=== PATIENT | female | born 1995 | race Caucasian/White ===

== ENCOUNTER → 2019-12-22 | Outpatient (CLI) | payer OTHER ==
[2019-12-22 15:17] LABS: HEMOGLOBIN 13.9 g/dl (12.0-15.5)
[2019-12-22 15:56] LABS: FOLLICLE STIMULATING HORMONE 4.1 mIU/mL; FREE T4 1.06 NG/DL (0.76-1.46); LUTEINIZING HORMONE 7.8 mIU/mL; THYROID STIMULATING HORMONE 1.46 uIU/ML (0.358-3.740)
== END ==
LOC: M PLALAB 13:44
PROVIDERS: ATTEND Nurse Practitioner Women's Health
DX: N92.6 Irregular menstruation, unspecified (principal)

== ENCOUNTER → 2019-12-29 | Outpatient (CLI) | payer OTHER ==
--- NOTE | 2020-01-07 08:46 | REP ---
PELVIC SONOGRAPHY HISTORY: Abnormal menstrual bleeding. FINDINGS: Transabdominal and transvaginal scanning are performed. Uterine dimensions are mildly prominent measuring 9.5 x 4.6 x 6.0 cm. Endometrial echo is 1.3 cm thick. No focal uterine mass is seen. There is a trace of physiologic fluid in the cul-de-sac. Normal ovaries are seen. Right ovarian dimensions are 3.6 x 2.2 x 1.7 cm. Left ovary measures 4.4 x 1.9 x 2.1 cm. IMPRESSION: Borderline uterine enlargement. Otherwise, unremarkable pelvic sonography. MTDD
== END ==
LOC: M WHC 13:23
PROVIDERS: ATTEND Nurse Practitioner Women's Health
DX: N92.6 Irregular menstruation, unspecified (principal)

== ENCOUNTER → 2020-03-02 | Outpatient (REF) | payer OTHER | LOC: M SFHCWAGY 17:14 | PROVIDERS: ATTEND Advanced Practice Midwife | DX: Z12.4 Encounter for screening for malignant neoplasm of cervix (principal); Z01.419 Encounter for gynecological examination (general) (routine) without abnormal findings ==

== ENCOUNTER → 2020-04-01 | Outpatient (CLI) | payer SELFPAY | LOC: M LABSMTC 13:15 | PROVIDERS: ATTEND Pediatrics | DX: Z20.828 Contact with and (suspected) exposure to other viral communicable diseases (principal) ==

== ENCOUNTER → 2020-04-12 | Outpatient (CLI) | payer OTHER ==
[2020-04-12 17:29] LABS: HEMATOCRIT 37.9 % (36.0-47.0); MEAN CORPUSCULAR HGB CONC 34.3 g/dl (32.0-36.5); MEAN CORPUSCULAR VOLUME 93.3 fl (80.0-96.0); PLATELET COUNT, AUTOMATED 301 10^3/uL (150-450); RED BLOOD COUNT 4.06 10^6/uL (4.00-5.40); WHITE BLOOD COUNT 5.3 10^3/uL (4.0-10.0)
[2020-04-12 18:46] LABS: HEPATITIS C VIRUS ABY INDEX < 0.0 INDEX (<0.8); HIV 1&2 SCREEN CENTAUR NEGATIVE (NEGATIVE)
[2020-04-12 21:39] LABS: CHLAMYDIA DNA AMPLIFICATION NEGATIVE (NEGATIVE); GC DNA AMPLIFICATION NEGATIVE (NEGATIVE)
== END ==
LOC: M PLALAB 15:06
PROVIDERS: ATTEND Advanced Practice Midwife
DX: Z34.91 Encounter for supervision of normal pregnancy, unspecified, first trimester (principal)
CPT/HCPCS: 36415; 82652; 84439; 84443; 85027; 86762; 86780; 86803; 86850; 86900; 86901; 87086; 87340; 87389; 87491; 87591; G0463

== ENCOUNTER → 2020-05-19 | Outpatient (CLI) | payer OTHER ==
--- NOTE | 2020-05-20 04:57 | REP ---
INDICATION: ANATOMY COMPARISON: None. TECHNIQUE: Transabdominal obstetrical ultrasound with color Doppler evaluation. FINDINGS: Examination demonstrates a single live intrauterine in breech presentation. motion is identified by technologist. Placenta is noted posterior and grade 1 without evidence for placenta previa or abruption. Amniotic fluid volume is normal. Cervix measures 3.3 cm in length and appears closed.. Gestational age by current measurements 19 weeks 4 days with DEBI 10/09/2020. FHR equals 152 beats per minute. BPD: 4.3 cm at 19 weeks 1 day HC: 16.4 cm at 19 weeks 1 day AC: 13.6 cm at 19 weeks 0 days FL: 3.2 cm at 20 weeks 0 days HL: 3.2 cm at 20 weeks 6 days HC/AC: 1.21 Estimated weight 292 grams (34thpercentile). Anatomical assessment demonstrates normal structures including cranium, choroid plexus, cavum, cerebellum/posterior fossa, facial features, lungs, four-chamber heart/ventricular outflow tracts, diaphragm, stomach, cord insertion/three-vessel cord, kidneys/bladder, spine, and extremities. IMPRESSION: Single live intrauterine in breech presentation demonstrating appropriate interval growth. Anatomical assessment is complete and normal. No gross abnormalities are identified. <Electronically signed by Shakeel Wheeler > 05/20/20 [id number]
== END ==
LOC: M WHC 14:08
PROVIDERS: ATTEND Specialist
DX: Z34.82 Encounter for supervision of other normal pregnancy, second trimester (principal)

== ENCOUNTER → 2020-09-07 | Outpatient (REF) | payer OTHER ==
[2020-09-07 17:32] LABS: HEMATOCRIT 34.5 % (36.0-47.0); HEMOGLOBIN 11.2 g/dl (12.0-15.5); MEAN CORPUSCULAR HEMOGLOBIN 29.9 pg (27.0-33.0); MEAN CORPUSCULAR HGB CONC 32.5 g/dl (32.0-36.5); MEAN CORPUSCULAR VOLUME 92.2 fl (80.0-96.0); PLATELET COUNT, AUTOMATED 326 10^3/uL (150-450); RED BLOOD COUNT 3.74 10^6/uL (4.00-5.40); WHITE BLOOD COUNT 8.1 10^3/uL (4.0-10.0)
== END ==
LOC: M PLALAB 14:30
PROVIDERS: ATTEND Obstetrics & Gynecology
DX: Z34.92 Encounter for supervision of normal pregnancy, unspecified, second trimester (principal); Z3A.22 22 weeks gestation of pregnancy
CPT/HCPCS: 36415; 82950; 85027; 87081; 87186; G0463

== ENCOUNTER 2020-10-06 02:22 | Inpatient (IN) | payer OTHER ==
[2020-10-06] VITALS (8 sets, daily range): BP systolic 106–185; BP diastolic 61–80
[~2020-10-06] VITALS: Ht 167.6 cm; Wt 72.1 kg
[2020-10-06] MEDS ORDERED: PRENTAB9 PO (02:38)
[2020-10-06] MEDS ORDERED: PENICILLIN G POTASSIUM IV 5 MU in D5W MINI-BAG PLUS 100 ML IV ONE (03:15)
[2020-10-06] MEDS ORDERED: LR 1,000 ML IV ONE (03:20)
[2020-10-06 03:24] LABS: MEAN CORPUSCULAR HEMOGLOBIN 28.6 pg (27.0-33.0); MEAN CORPUSCULAR HGB CONC 33.3 g/dl (32.0-36.5); MEAN CORPUSCULAR VOLUME 85.7 fl (80.0-96.0); PLATELET COUNT, AUTOMATED 295 10^3/uL (150-450); RED BLOOD COUNT 3.85 10^6/uL (4.00-5.40); WHITE BLOOD COUNT 9.2 10^3/uL (4.0-10.0)
[2020-10-06] MEDS ORDERED: OXYTOCIN 30 UNITS IN 0.9% NaCl 500ML IV BAG (J2590) As Ordered ONE (03:58)
[2020-10-06] MEDS ORDERED: LIDOCAINE 1% MDV 20ML VIAL As Ordered ONE (04:06)
[2020-10-06] MEDS ORDERED: ACETAMINOPHEN TAB 650MG DOSE (2X325MG) PO PRN (04:45)
[2020-10-06] MEDS ORDERED: RHOGAM 300 MCG (1500 IU) INJ (J2790) IM SCH (04:45)
[2020-10-06] MEDS ORDERED: IBUPROFEN 600MG TAB PO PRN (04:45)
[2020-10-06] MEDS ORDERED: LIDOCAINE 1% MDV 20ML VIAL INFIL ONE (04:45)
[2020-10-06] MEDS ORDERED: OXYTOCIN DRIP 30 UNITS in IV 1 EA IV SCH ×2 (04:45→16:30)
[2020-10-06] MEDS ORDERED: DOCUSATE SODIUM 100MG CAPSULE PO PRN (04:45)
[2020-10-06] MEDS ORDERED: MEASLES,MUMPS,RUBELLA VACCINE INJ (MMR-II) (90707) SC SCH (04:45)
--- NOTE | 2020-10-06 04:57 | HPEPDOC ---
Obstetrical History & Physical General Date of Admission Oct 06, 2020 at 03:18 History of Present Illness Brooks is a 25yo with SIUP at 40w0d by lmp c/w 8wk u/s presenting with CC of regular, painful ctx that started after midnight. No LOF, no vaginal bleeding. Good FM. Chief Complaint: Contractions, term Information Provided By: Patient Care Care: Good Care Dating Final EDC: Oct 06, 2020 Final EDC by: LMP, 1st trimester (US) Antepartum Course Diagnos(e)s SAD, GBS pos Past Medical History Past Obstetrical History : Past Obstetrical History: Multigravida (2013 ETOP, 2015 early sab, 09/08/2017 38wk 6lb9oz M) PSYCHOLOGISTS History: History of STD (chlamydia in the past) Past Medical History Medical History benign Surgical History: Denies/None Family History Significant Family History: No pertinent family hx Social History Marital Status: Family situation: Spouse/partner home Psychosocial History: Other (SAD) * Smoker: non-smoker Alcohol: Denies Drugs: denies Imunizations Tdap status: current Allergies Coded Allergies: Watermelon (Verified Allergy, Unknown, vomiting, 10/06/20) latex (Verified Allergy, Unknown, AT RISK D/T FRUIT ALLERGY, 10/06/20) pineapple (Verified Allergy, Unknown, vomiting, 10/06/20) Medications Scheduled No.137/Iron/Folic Acd ( Vitamin Tablet) 1 Each Tablet, 1 TAB PO DAILY Physical Examination Physical Examination GENERAL: Alert and oriented times three. ABDOMEN: Gravid and non-tender to touch. FETUS: Is vertex (VTX) by sterile vaginal examination (SVE) EXTREMITIES: No edema BLE Vital Signs/I&O Vital Signs Date Time Temp Pulse Resp B/P (MAP) Pulse Ox O2 Delivery O2 Flow Rate FiO2 10/06/20 02:46 79 124/80 (95) Laboratory Data 24H LABS Laboratory Tests 2 10/06/20 03:09: Nucleated Red Blood Cells % (auto) 0.0 10/06/20 03:21: Serology Scanned Report Hepatitis B Testing CBC/BMP Laboratory Tests 10/06/20 03:09 Pertinent Laboratoy Data Blood Type: A+ RBC Antibody Screen: Negative HIV: Negative Hepatitis B: Negative Hepatitis C: Negative Rapid Plasma Reagin: Nonreactive Rubella: Immune Chlamydia/Gonorrhea: Negative Group B Streptococcus: Positive Glucose Tolerance Test: 101 Anatomy Ultrasound Ultrasound Date: May 19, 2020 Placenta Location: Posterior Normal Anatomy: Yes Placenta Previa: No Steroid Therapy Steroid Therapy: No Vaginal Examination Dilation: 6 cm Effacement: 90% Station: 0 Cervical Consistency: Soft Cervical Position: Middle Presentation: Cephalic presentation Assessment Heart Rate (FHR): 140 Variability: Moderate Accelerations: Positive Decelerations: None Tocometer Contractions: Yes Frequency: regular, every 2-5 min. Duration: greater than 60 seconds Strength: palpated as strong Assessment/Plan Assessment Brooks is a 25yo with SIUP at 40w0d by lmp c/w 8wk u/s in active labor with regular painful ctx and SCE /0. Cat I FHRT. Vitals wnl, afebrile. GBS positive. Cephalic by SCE (per RN). PMhx only significant for SAD and chlamydia in remote past (negative testing with this ). Plan Admit and orient. Camera Maker and consent. Diet: regular Group B Streptococcus (GBS) pos: IV PCN per protocol Labs and intravenous (IV) per unit protocol. Lactated Ringers (LR): Bolus 1000 mL, then at 125 mL/hr. Anticipate normal spontaneous delivery () Safe to proceed MD Aashish Miguel Katrina D MD Oct 06, 2020 04:57
--- NOTE | 2020-10-06 05:06 | DNPDOC ---
[facility] Delivery Note Delivery Note DATE OF DELIVERY: 10/06/2020 PREDELIVERY DIAGNOSIS: 40w0d gestation and labor. POST DELIVERY DIAGNOSIS: Delivered. PROCEDURE: Spontaneous vaginal delivery MOLD CLOSER: Dr. Nicolasa Zendejas MD ANESTHESIA: 1% lidocaine for repair ESTIMATED BLOOD LOSS: 200 mL. FINDINGS: 7 pound 2 ounce (3220g) female , Score 9/9 DELIVERY SUMMARY: Brooks is a 25yo [id number] s/p uncomplicated at 40w0d, delivering at 0356 on 10/06/20. Ctx started around 0100 and she presented at 6/90/0 and rapidly progressed to C/C/+2, with pushing she had clear AROM. With just a couple of pushes, infant's head delivered OA, restituted ALEXIS. Right anterior shoulder delivered immediately followed by posterior shoulder and corpus. Infant was vigorous, had spontaneous cry, placed on maternal abdomen and nose and mouth suctioned with bulb suction. After approximately 2 minutes, cord was clamped x2 and cut by FOB, apgars 9/9. Fundal massage was performed and traction was placed on the umbilical cord, placenta delivered spontaneously and intact with 3 vessel cord noted. At that point, IV pitocin was bolused per protocol. Uterine massage was performed and fundus was firm at u-2cm. Inspection of perineum and vagina re vealed a 2mll (obviously a repeat of prior laceration related to scar tissue) which was repaired in routine fashion with 3-0 vicryl with complete reapproximation and total hemostasis noted. All counts were correct x2. Mom and baby were doing well when I left the room. GBS incompletely treated with PCN given precipitous nature of delivery. MD Aashish Miguel Katrina D MD Oct 06, 2020 05:06
[2020-10-06] MEDS: IBUPROFEN 800 MG TAB PO PRN ×3 (06:37→20:38)
[2020-10-06] MEDS: PRENATAL VITAMINS CHEWABLE TABLET PO SCH (08:13)
[2020-10-06] MEDS: ACETAMINOPHEN 500 MG TAB PO PRN ×2 (08:14→17:47)
[2020-10-07] MEDS: ACETAMINOPHEN 500 MG TAB PO PRN (00:14)
[2020-10-07 05:47] VITALS: BP 104/53
[2020-10-07] MEDS: PRENATAL VITAMINS CHEWABLE TABLET PO SCH (09:20)
[2020-10-07] MEDS: IBUPROFEN 800 MG TAB PO PRN ×2 (09:21→16:23)
[2020-10-07 18:00] VITALS: BP 125/70
[2020-10-08] MEDS: IBUPROFEN 800 MG TAB PO PRN ×2 (00:35→08:05)
[2020-10-08 06:00] VITALS: BP 101/52
[2020-10-08] MEDS ORDERED: ACET-683 PO (07:04)
[2020-10-08] MEDS ORDERED: IBUP80TA PO (07:04)
[2020-10-08] MEDS: PRENATAL VITAMINS CHEWABLE TABLET PO SCH (08:04)
== END 2020-10-08 12:10 | disposition home or self-care (01) | DRG 807 ==
LOC: M LDO 02:22 → M LDI 03:18 → M OBS 06:10
PROVIDERS: ADMIT Obstetrics & Gynecology; ATTEND Obstetrics & Gynecology
PROC: 10E0XZZ Delivery of Products of Conception, External Approach (ICD-10-PCS; principal; 2020-10-06)
PROC: 0KQM0ZZ Repair Perineum Muscle, Open Approach (ICD-10-PCS; 2020-10-06)
PROC: 10907ZC Drainage of Amniotic Fluid, Therapeutic from Products of Conception, Via Natural or Artificial Opening (ICD-10-PCS; 2020-10-06)
DX: O48.0 Post-term pregnancy (principal); Z37.0 Single live birth; Z3A.40 40 weeks gestation of pregnancy; O99.824 Streptococcus B carrier state complicating childbirth; O62.3 Precipitate labor; O70.1 Second degree perineal laceration during delivery